=== PATIENT | male | born 1990 | race African-American/Black ===

== ENCOUNTER 2023-10-26 01:46 | Emergency (ER) | payer SELFPAY ==
[~2023-10-26] VITALS: Ht 177.8 cm; Wt 99.8 kg
[2023-10-26 02:17] LABS: BASOPHILS % (AUTO) 0.5 % (0.0-2.0); EOSINOPHILS # (AUTO) 0.1 K/uL (0.0-0.7); EOSINOPHILS % (AUTO) 2.3 % (0.0-7.0); HEMATOCRIT 40.6 % (36.7-47.1); HEMOGLOBIN 13.9 g/dL (12.5-16.3); LYMPHOCYTES # (AUTO) 1.8 K/uL (0.8-4.8); LYMPHOCYTES % (AUTO) 30.9 % (20.5-51.5); MEAN CORPUSCULAR HEMOGLOBIN 33.2 uug (23.8-33.4); MEAN CORPUSCULAR HGB CONC 34 g/dL (32.5-36.3); MEAN CORPUSCULAR VOLUME 97.3 fL (73.0-96.2); MONOCYTES # (AUTO) 0.3 K/uL (0.1-1.30); MONOCYTES % (AUTO) 5.5 % (0.0-11.0); NEUTROPHILS # (AUTO) 3.6 K/uL (1.8-8.9); NEUTROPHILS % (AUTO) 60.8 % (38.5-71.5); PLATELET COUNT (AUTO) 271 K/uL (152-348); RED BLOOD CELL COUNT(AUTO) 4.17 MIL/uL (4.06-5.63); RED CELL DISTRIBUTION WIDTH 13.4 % (12.1-16.2); WHITE BLOOD COUNT (AUTO) 5.9 K/uL (3.6-10.2)
[2023-10-26 02:27] LABS: ETHANOL 332 MG/DL (0-10)
[2023-10-26 02:31] LABS: DIFFERENTIAL COMMENT 1
[2023-10-26 02:31] LABS: *BILIRUBIN,URIN NEGATIVE (NEGATIVE); *BLOOD, URINE NEGATIVE (NEGATIVE); *CLARITY,URINE CLEAR (CLEAR); *COLOR,URINE YELLOW (YELLOW); *KETONES,URINE NEGATIVE (NEGATIVE); *PROTEIN,URINE NEGATIVE (NEGATIVE); *UROBILINOGEN,URINE 0.2 E.U./dl (NORMAL); LEUKOCYTE ESTERASE ,URINE NEGATIVE (NEGATIVE); NITRITE, URINE NEGATIVE (NEGATIVE); PH,URINE 5.5 (5.0-8.0); UGLUCOSE NEGATIVE (NEGATIVE)
[2023-10-26 02:33] LABS: CALCIUM 8.7 mg/dL (8.5-10.1); CARBON DIOXIDE 27 mmol/L (21-32); CHLORIDE 102 mmol/L (98-107); CREATININE 1.1 mg/dL (0.6-1.3); GLUCOSE 120 mg/dL (74-106); POTASSIUM 4.4 mmol/L (3.5-5.1); SODIUM SERUM 139 mmol/L (136-145); UREA NITROGEN, BLOOD 8 mg/dL (7-18)
[2023-10-26 02:38] LABS: THYROID STIMULATING HORMONE 0.962 mIU/mL (0.358-3.740)
[2023-10-26 02:42] LABS: *AMPHETAMINE, URINE NEGATIVE (NEGATIVE); *BARBITURATE, URINE NEGATIVE (NEGATIVE); *BENZODIAZEPINE, URINE NEGATIVE (NEGATIVE); *CANNABINOID, URINE NEGATIVE (NEGATIVE); *COCCAINE, URINE NEGATIVE (NEGATIVE); *OPIATE, URINE NEGATIVE (NEGATIVE); *PHENCYCLIDINE SCREEN,URINE NEGATIVE (NEGATIVE)
[2023-10-26 02:43] LABS: FENTANYL, URINE NEGATIVE (NEGATIVE)
[2023-10-26 02:46] LABS: ALANINE AMINOTRANSFERASE 19 U/L (16-63); ALBUMIN 3.9 g/dL (3.4-5.0); ALKALINE PHOSPHATASE 59 U/L (50-136); ASPARTATE AMINOTRANSFERASE 22 U/L (15-37); BILIRUBIN,DIRECT 0.1 mg/dL (0.0-0.2); BILIRUBIN,TOTAL 0.4 mg/dL (0.2-1.0); TOTAL PROTEIN, SERUM 8.1 g/dL (6.4-8.2)
[2023-10-26 02:49] LABS: ACETAMINOPHEN < 10.0 ug/mL (10-30)
[2023-10-26] MEDS: IV NORMAL SALINE 1000 ML BAG IV ONE (03:09)
[2023-10-26 04:00] VITALS: O2SAT 98
== END 2023-10-26 11:30 | disposition home or self-care (01) ==
LOC: ER 01:50
DX: F10.931 Alcohol use, unspecified with withdrawal delirium (principal); Y90.0 Blood alcohol level of less than 20 mg/100 ml
CPT/HCPCS: 80076; 80048; 81003; 83880; 83735; 84443; 85025; 84484; 36415; 93005; 71045 ×2; 70450; 99285; 96360; 80299; 80320; 80307; J7040; A4606; A4663; G0480